=== PATIENT | female | born 1955 | race Caucasian/White ===

== ENCOUNTER → 2019-03-12 09:04 | Outpatient (BNVA) | payer MEDICARE, SELFPAY | PROVIDERS: Family Provider Family Medicine; PCP Family Medicine; Referring Provider Family Medicine; Visit Provider Internal Medicine Rheumatology | DX: L40.50 Arthropathic psoriasis, unspecified (principal); Z79.899 Other long term (current) drug therapy; Z11.59 Encounter for screening for other viral diseases; L40.0 Psoriasis vulgaris; J44.9 Chronic obstructive pulmonary disease, unspecified; F17.210 Nicotine dependence, cigarettes, uncomplicated; L40.9 Psoriasis, unspecified | CPT/HCPCS: 36415; 80076; 82565; 85025; 85651; 86140; 86704; 99214 ==

== ENCOUNTER → 2019-03-12 10:49 | Outpatient (BNVA) | payer MEDICARE, SELFPAY | PROVIDERS: Family Provider Family Medicine; PCP Family Medicine; Referring Provider Family Medicine; Visit Provider Internal Medicine Rheumatology | DX: J44.9 Chronic obstructive pulmonary disease, unspecified (principal); Z79.899 Other long term (current) drug therapy; L40.50 Arthropathic psoriasis, unspecified; L40.9 Psoriasis, unspecified | CPT/HCPCS: 85025 ==

== ENCOUNTER 2019-06-27 10:45 | Outpatient (CLI) | payer MEDICARE, SELFPAY ==
--- NOTE | 2019-06-27 10:51 | XR_ITS ---
WS: [id number] XR chest 2V* [id number] REASON FOR EXAM: COPD FINDINGS: Lung alfonso are hyper aerated with decreased vascularity consistent with early chronic obst ructive pulmonary disease. There is arteriosclerotic changes seen in the arch the aorta. There is no pneumonia, pleural effusion, pulmonary edema, or mass effect. There is no osseous abnormalities. The hilum and apices are normal. Arteriosclerotic changes in the arch of the aorta are seen. XR/XR chest 2V* [id number] IMPRESSION: Mild chronic obstructive pulmonary disease Arteriosclerotic changes.
== END 2019-06-27 10:46 | disposition home or self-care (01) ==
LOC: RAD 10:50
PROVIDERS: Family Provider Family Medicine; PCP Family Medicine; Visit Provider Internal Medicine Critical Care Medicine
DX: J44.9 Chronic obstructive pulmonary disease, unspecified (principal)
CPT/HCPCS: 71046

== ENCOUNTER → 2019-07-04 08:54 | Outpatient (BNVA) | payer MEDICARE, SELFPAY | PROVIDERS: Family Provider Family Medicine; PCP Family Medicine; Visit Provider Internal Medicine Rheumatology | DX: Z79.899 Other long term (current) drug therapy (principal) | CPT/HCPCS: 36415; 80076; 82565; 85025; 85651; 86140 ==

== ENCOUNTER 2019-07-11 08:39 | Outpatient (CLI) | payer MEDICARE, SELFPAY ==
--- NOTE | 2019-07-11 09:00 | CT_ITS ---
WS: [id number] CT CHEST WITHOUT INTRAVENOUS CONTRAST HISTORY: Worsening shortness of breath TECHNIQUE: Contiguous 5 mm axial imaging performed on the thorax. Coronal and sagittal reformats are submitted. All CT scans at [facility] use at least one of these dose optimization techniq ues: automated exposure control; mA and/or kV adjustment per patient size (includes targeted exams wh ere dose is matched to clinical indication); or iterative reconstruction. CONTRAST: None DLP: 679.97 mGycm COMPARISON: 04/11/2013 Lungs and central airway: Lobulated 6 mm nodule at the LEFT apex. Margins are smooth. There are no additional new nodules. Ther e are very small subcentimeter nodules at the lung bases which have been stable for multiple years. Pleura: Normal. No pleural effusion. Heart and pericardium: Normal size heart with a few scattered coronary artery calcifications. Mediastinum and karrie: No mediastinum or hilar adenopathy. Vessels: Moderate calcification in the thoracic aorta. No aneurysm dilatation. Pulmonary artery size is normal. Chest wall and lower neck: No soft tissue masses. Upper abdomen: 1.5 cm area of decreased attenuation in the mid LEFT kidney. Incompletely imaged but a cyst has been described in this location on a study from 06/12/2014. No adrenal mass. Visualized uppe r abdominal structures are negative. Osseous structures: Mild thoracic spondylosis. Chronic anterior wedging of T3. CT/CT chest wo con [id number] IMPRESSION: 1. New 6 mm noncalcified nodule at the LEFT apex. Recommend follow-up chest CT in 12 months. 2. No additional suspicious or concerning nodules. 3. Mild atherosclerosis aorta and coronary arteries.
== END 2019-07-11 08:40 | disposition home or self-care (01) ==
LOC: RADWPI 08:43
PROVIDERS: Family Provider Family Medicine; PCP Family Medicine; Visit Provider Internal Medicine Critical Care Medicine
DX: L40.50 Arthropathic psoriasis, unspecified (principal); Z79.899 Other long term (current) drug therapy; L40.8 Other psoriasis; J44.9 Chronic obstructive pulmonary disease, unspecified; M54.9 Dorsalgia, unspecified; M81.0 Age-related osteoporosis without current pathological fracture; Z87.891 Personal history of nicotine dependence
CPT/HCPCS: 71250; 99214

== ENCOUNTER 2019-07-25 12:22 | Outpatient (CLI) | payer MEDICARE, SELFPAY ==
--- NOTE | 2019-07-25 12:56 | XR_ITS ---
WS: [id number] XR foot RT min 3V* [id number] REASON FOR EXAM: psoriatic arthritis FINDINGS: Osteopenia changes throughout the foot are seen. The phalanges, metatarsals, tarsals show no destructive changes or fractures. Lisfranc joint shows mi ld osteoarthritic changes. The talar region shows talar beaking. But no definite bony coalition is seen. The calcaneus was normal. XR/XR foot RT min 3V* [id number] IMPRESSION: Osteopenic changes throughout the foot Beaking off the anterior talus. Degenerate changes of Lisfranc Franc joint.
--- NOTE | 2019-07-25 12:56 | XR_ITS ---
WS: [id number] XR foot LT min 3V* [id number] REASON FOR EXAM: psoriatic arthritis FINDINGS: Small calcaneal spur is noted. There is no destructive changes to suggest psoriasis involving the foot. The phalanges, metatarsals, and tarsals are all normal. XR/XR foot LT min 3V* 53760 IMPRESSION: Small calcaneal spur No evidence suspicious of psoriatic arthritis.
--- NOTE | 2019-07-25 12:56 | XR_ITS ---
WS: [id number] XR thoracic spine 2V 05103 REASON FOR EXAM: back pain FINDINGS: Degenerates spurring is seen off the upper 8 thoracic vertebra as. The disc spaces essentially normal. There is no definite fractures seen. The lamina, pedicle, spinous processes are all straight. XR/XR thoracic spine 2V 60514 IMPRESSION: Mild osteoarthritic changes of the thoracic spine.
--- NOTE | 2019-07-25 12:56 | XR_ITS ---
WS: [id number] XR lumbar spine 2-3V* [id number] REASON FOR EXAM: back pain FINDINGS: Mild thoracolumbar rotoscoliosis convex to the left. Facet arthropathy L5-S1. Mild retrolisthesis L5 on S1. There is thinning of the disc spaces L3-L4. Increased lumbosacral angle suggesting lordosis. XR/XR lumbar spine 2-3V* 79461 IMPRESSION: Increased lordosis Degenerated disc changes L3-L4 Facet arthropathy L5-S1 Mild retrolisthesis L5-S1 Mild thoracolumbar rotoscoliosis convex to the left Heavy arteriosclerotic changes of the aorta and iliac arteries.
--- NOTE | 2019-07-25 13:15 | XR_ITS ---
WS: [id number] DEXA (DUAL ENERGY X-RAY ABSORPTIOMETRY) Bone mineral density was performed using a Yoomba machine. HISTORY: osteoporosis COMPARISON: None available. Lumbar spine BMD (L1-L4): 0.915 g/cm2 T score: -2.2 Z score: -0.8 Total hip BMD: Left: 0.579 g/cm2. T score: -3.4 Z score: -2.3 Right: 0.520 g/cm2. T score: -3.9 Z score: -2.8 10 year probability of a major osteoporotic fracture is 38%. XR/XR DEXA axial skeleton* 34753 IMPRESSION: OSTEOPOROSIS based upon the WHO classification for females.
== END 2019-07-25 12:23 | disposition home or self-care (01) ==
LOC: RADWPI 12:26
PROVIDERS: Family Provider Family Medicine; PCP Family Medicine; Visit Provider Internal Medicine Rheumatology
DX: M81.0 Age-related osteoporosis without current pathological fracture (principal); M54.9 Dorsalgia, unspecified; L40.50 Arthropathic psoriasis, unspecified; M47.814 Spondylosis without myelopathy or radiculopathy, thoracic region; M40.46 Postural lordosis, lumbar region; M47.817 Spondylosis without myelopathy or radiculopathy, lumbosacral region; M77.32 Calcaneal spur, left foot
CPT/HCPCS: 72070; 72100; 73630; 77080

== ENCOUNTER → 2019-11-12 09:35 | Outpatient (BNVA) | payer MEDICARE, SELFPAY | PROVIDERS: Family Provider Family Medicine; PCP Family Medicine; Visit Provider Internal Medicine Rheumatology | DX: L40.50 Arthropathic psoriasis, unspecified (principal); Z79.899 Other long term (current) drug therapy; R91.1 Solitary pulmonary nodule; J44.9 Chronic obstructive pulmonary disease, unspecified; M81.0 Age-related osteoporosis without current pathological fracture; L40.8 Other psoriasis; Z87.891 Personal history of nicotine dependence | CPT/HCPCS: 36415; 80076; 82310; 82565; 83735; 83970; 84100; 84439; 84443; 85025; 85651; 86140; 99214 ==

== ENCOUNTER → 2020-03-05 09:49 | Outpatient (BNVA) | payer MEDICARE, SELFPAY | PROVIDERS: Family Provider Family Medicine; PCP Family Medicine; Visit Provider Internal Medicine Rheumatology | DX: L40.50 Arthropathic psoriasis, unspecified (principal); L40.0 Psoriasis vulgaris; Z79.899 Other long term (current) drug therapy; M81.0 Age-related osteoporosis without current pathological fracture; M47.816 Spondylosis without myelopathy or radiculopathy, lumbar region; R91.1 Solitary pulmonary nodule; J44.9 Chronic obstructive pulmonary disease, unspecified; Z87.891 Personal history of nicotine dependence | CPT/HCPCS: 36415; 80076; 82565; 85025; 85651; 86140; 99214 ==

== ENCOUNTER 2020-03-20 10:00 | Outpatient (CLI) | payer MEDICARE, SELFPAY ==
--- NOTE | 2020-03-20 10:13 | NMCV_ITS ---
NM noe perf SPECT r/s* [id number] Lashanda Joy Age: 65 Gender: F : 1955 Exam Date: 03/20/2020 11:41 Ordering Phys: Caren Willams MD Technologist: ARIES Amaya Exam Location: [facility] Indications: CHEST PAIN STRESS TEST Please see separate stress test report in [facility] for full findings IMAGE PROTOCOL Rest/Stress 1 Exercise Day Radiopharmaceutical Dose (mCi) Administration Site Administered by Rest: Tc-99m 10.8 IV ARIES Solorzano Sestamibi Stress:Tc-99m 32.7 IV ARIES Amaya Sestamimirta Rest: 20-Mar-2020 60 Discovery 630 Stress: 20-Mar-2020 15 Discovery 630 Radiopharmaceutical was injected at 85 % maximum heart rate. Supine position only as patient was unable to lay prone. SPECT RESULTS Technical Quality: Good Raw Data Analysis: Normal Image Corrections: No attenuation or motion correction applied Summed Stress Score: 0 Summed Rest Score: 2 Summed Difference Score: 0 PERFUSION FINDINGS Small size perfusion abnormality of mild severity of apical inferior, apical septal and apical escalona on rest images with improved tracer uptake on stress images. This is likely suggestive of attenuation artifact. FUNCTIONAL RESULTS (calculated via Gated SPECT) Stress Image LV EF (%): 84 Stress EDV (mL):73 TID: 0.93 Stress ESV (mL):12 FUNCTIONAL FINDINGS: The left ventricle is normal in size. Transient Ischemia Dilatation of 0.93. There is normal left ventricular systolic function. The left ventricular ejection fraction is normal with a value of 84%. There is hyperdynamic left ventricular wall thickening. No regional wall motion abnormality. IMPRESSIONS 1. Myocardial perfusion imaging is normal. Attenuation artifact and apical septal and apical inferior escalona. 2. Overall left ventricular systolic function is normal without regional wall motion abnormalities. 3. The left ventricular ejection fraction is normal with a value of 84%. 4. Scan indicates low risk for cardiac events. Mariela Berry MD (Electronically Signed) Final Date: 20 March 2020 16:30 S
--- NOTE | 2020-03-20 10:13 | ECG_ITS ---
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 Interpretive Statements NAME OF STUDY: EXERCISE SESTAMIBI STRESS TEST INDICATION: Chest Pain Baseline blood pressure of 171/89 mm Hg, oxygen saturation 98% and heart rate 75 beats per minutes. EKG showed normal sinus rhythm, normal axis with normal ST-Ts. The patient exercised for 7 minutes 39 seconds on a standard Unruly protocol. Patient attained a maximum heart rate of 139 beats per minute(88% of the maximum predicted heart rate) with a blood pressure at the peak exercise of 190/79 mm Hg and oxygen saturation 96%. The EKG at the peak exercise revealed sinus tachycardia with no significant ST-T wave changes. Patient did not have any chest pain or any significant arrhythmis with the exercise. The study was terminated due to shortness of breath and exertional fatigue. During the recovery phase, there were no new changes. Blood pressure at the end of the recovery phase was 149/86 mm Hg with a heart rate of 85 beats per minute and oxygen saturation 99%. CONCLUSION: 1. Normal EKG response to treadmill exercise. 2. No exercise-induced chest pain or cardiac arrhythmia. 3. Excellent exercise tolerance, attained a maximum of 10.2 METs. Maximum VO2 of 35.7 mL/kg/min. 4. Baseline hypertension with normal response to exercise. 5. Perfusion scan will be documented separately. Electronically Signed On 03-20-2020 16:34:35 [employer] by Mariela Berry M.D. [id number]
[2020-03-20 10:36] VITALS: BMI 25.0
--- NOTE | 2020-03-20 11:08 | PC.NURSE ---
after discussing with patient, she understands that she may not able to complete treadmill test due to here right ankle. the option to complete this test would be to do a chemical stress test. she agreed to do that if needed. nurse called dr renate salazar to verify order change if needed. verbal order to change to alia scan if needed.
[2020-03-20 12:38] VITALS: BP 149/86; PULSE 84
== END 2020-03-20 10:01 | disposition home or self-care (01) ==
LOC: RAD 10:09 → CDL 10:13
PROVIDERS: PCP Family Medicine; Visit Provider Family Medicine
DX: R07.9 Chest pain, unspecified (principal)
CPT/HCPCS: 78452; 93017; A9500

== ENCOUNTER → 2020-07-09 08:26 | Outpatient (BNVA) | payer MEDICARE, SELFPAY | PROVIDERS: PCP Family Medicine; Visit Provider Internal Medicine Rheumatology | DX: M81.0 Age-related osteoporosis without current pathological fracture (principal); Z79.899 Other long term (current) drug therapy; L40.50 Arthropathic psoriasis, unspecified | CPT/HCPCS: 36415; 80076; 82565; 85025; 86140 ==

== ENCOUNTER → 2020-07-16 08:33 | Outpatient (BNVA) | payer MEDICARE, SELFPAY | PROVIDERS: PCP Family Medicine; Visit Provider Internal Medicine Rheumatology | DX: L40.50 Arthropathic psoriasis, unspecified (principal); L40.9 Psoriasis, unspecified; Z79.899 Other long term (current) drug therapy; M81.0 Age-related osteoporosis without current pathological fracture; M47.896 Other spondylosis, lumbar region; J44.9 Chronic obstructive pulmonary disease, unspecified; F17.210 Nicotine dependence, cigarettes, uncomplicated | CPT/HCPCS: 99214 ==

== ENCOUNTER → 2020-10-15 09:58 | Outpatient (BNVA) | payer MEDICARE, SELFPAY | PROVIDERS: PCP Family Medicine; Visit Provider Internal Medicine Rheumatology | DX: M81.0 Age-related osteoporosis without current pathological fracture (principal); Z79.899 Other long term (current) drug therapy; L40.50 Arthropathic psoriasis, unspecified | CPT/HCPCS: 36415; 80076; 82306; 82310; 82565; 85025; 86140 ==

== ENCOUNTER → 2020-10-30 12:42 | Outpatient (BNVA) | payer MEDICARE, SELFPAY | PROVIDERS: PCP Family Medicine; Visit Provider Internal Medicine Rheumatology | DX: L40.50 Arthropathic psoriasis, unspecified (principal); L40.0 Psoriasis vulgaris; Z79.899 Other long term (current) drug therapy; M81.0 Age-related osteoporosis without current pathological fracture; M47.896 Other spondylosis, lumbar region; J44.9 Chronic obstructive pulmonary disease, unspecified; R91.1 Solitary pulmonary nodule; Z71.89 Other specified counseling; F17.200 Nicotine dependence, unspecified, uncomplicated | CPT/HCPCS: 99214 ==

== ENCOUNTER 2020-10-31 13:02 | Outpatient (CLI) | payer MEDICARE, SELFPAY ==
--- NOTE | 2020-10-31 08:45 | XR_ITS ---
WS: [id number] RIGHT RIBS, MULTIPLE VIEWS HISTORY: R07.81 - Pleurodynia COMPARISON: None available. Ribs: No rib fractures or bone destruction identified. Lungs and mediastinum: Visualized lung is clear. No pneumothorax or pulmonary contusion. Mild atherosclerosis aorta. XR/XR ribs RT 2V* [id number] IMPRESSION: No RIGHT rib fractures identified.
== END 2020-10-31 13:03 | disposition home or self-care (01) ==
LOC: RADWPI 13:11
PROVIDERS: PCP Family Medicine; Visit Provider Internal Medicine Rheumatology
DX: R07.81 Pleurodynia (principal)
CPT/HCPCS: 71100

== ENCOUNTER 2021-04-06 07:47 | Outpatient (CLI) | payer MEDICARE, SELFPAY ==
--- NOTE | 2021-04-06 08:00 | XRR_ITS ---
PROCEDURE INFORMATION: Exam: XR Cervical Spine Exam date and time: 04/06/2021 8:00 AM Age: 66 years old Clinical indication: Neck pain; Prior surgery; Surgery type: Osteomylitis, c-spine, lower back, RT hip; Patient HX: RT hip pain, neck, and lower back pain. PT states that to the RT of her spine she feels as if she has an electrical shock , nausea, lightheadedness when bending; Additional info: Psoriasis/rheumatoid arthritis/acute neck pain TECHNIQUE: Imaging protocol: XR of the cervical spine. Views: 2 or 3 views. COMPARISON: CT Cervical Spine wo* [id number] 02/28/2017 8:00 AM FINDINGS: Bones/joints: Anterior fixation in bony fusion at C5/6. 1 mm listhesis C6 anterior to C7. Mild to moderate facet joint hypertrophic changes. No fracture. Soft tissues: Unremarkable. XR/XR cervical spine 3V* [id number] IMPRESSION: Postoperative changes with arthritis and minimal listhesis.
--- NOTE | 2021-04-06 08:00 | XRR_ITS ---
PROCEDURE INFORMATION: Exam: XR Lumbosacral Spine Exam date and time: 04/06/2021 8:00 AM Age: 66 years old Clinical indication: Sciatica; Prior surgery; Surgery type: Osteomylitis, c-spine, lower back, RT hip; Patient HX: RT hip pain, neck, and lower back pain. PT states that to the RT of her spine she feels as if she has an electrical shock , nausea, lightheadedness when bending; Additional info: Ra/sciatica TECHNIQUE: Imaging protocol: XR of the lumbosacral spine. Views: 2 or 3 views. COMPARISON: CR XR lumbar spine 2-3V* [id number] 07/25/2019 1:00 PM FINDINGS: Bones/joints: Osteopenia. Minimal disc height loss at L3/4. Moderate to severe facet joint hypertrophic changes at L4/5 and L5/S1. Soft tissues: Unremarkable. Vasculature: Aortic calcifications. XR/XR lumbar spine 2-3V* [id number] IMPRESSION: Arthritis and osteopenia without fracture.
--- NOTE | 2021-04-06 08:00 | XRR_ITS ---
PROCEDURE INFORMATION: Exam: XR Right Hip Exam date and time: 04/06/2021 8:00 AM Age: 66 years old Clinical indication: Right hip; Prior surgery; Surgery type: Osteomylitis, c-spine, lower back, RT hip; Patient HX: RT hip pain, neck, and lower back pain. PT states that to the RT of her spine she feels as if she has an electrical shock , nausea, lightheadedness when bending; Additional info: R hip pain/psoriasis/ra TECHNIQUE: Imaging protocol: XR Right hip. Views: 1 view hip with pelvis when performed. COMPARISON: CT Abdomen/Pelvis [facility] [id number] 06/12/2014 1:21 PM FINDINGS: Bones/joints: Mild osteopenia. No fracture. Intact joint space. Soft tissues: Unremarkable. XR/XR hip RT 2-3V wo/w pel* [id number] IMPRESSION: No acute findings.
== END 2021-04-06 07:48 | disposition home or self-care (01) ==
LOC: RAD 07:57
PROVIDERS: PCP Family Medicine; Visit Provider Family Medicine
DX: L40.9 Psoriasis, unspecified (principal); M06.9 Rheumatoid arthritis, unspecified; M54.30 Sciatica, unspecified side; M25.551 Pain in right hip; M47.816 Spondylosis without myelopathy or radiculopathy, lumbar region; M85.80 Other specified disorders of bone density and structure, unspecified site; M47.812 Spondylosis without myelopathy or radiculopathy, cervical region
CPT/HCPCS: 72040; 72100; 73502

== ENCOUNTER 2021-04-23 09:57 | Outpatient (CLI) | payer MEDICARE, SELFPAY ==
--- NOTE | 2021-04-23 12:00 | CT_ITS ---
WS: [id number] CT ABDOMEN PELVIS TECHNIQUE: Contrast-enhanced CT of the abdomen and pelvis with coronal and sagittal reformatted image s. CLINICAL INFORMATION: RLQ ABD PAIN COMPARISON: CT June 12 2014 DLP: 887.[address] scans at [facility] use at least one of these dose optimization techniques: automated e xposure control; mA and/or kV adjustment per patient size (includes targeted exams where dose is matc hed to clinical indication); or iterative reconstruction. FINDINGS: Diffuse fatty infiltration of the liver. Normal portal vein and splenic vein. Normal spleen. Normal G E junction. Fatty atrophy of the pancreas. Normal caliber abdominal aorta. Aortic calcification. Citlalli ac and SMA are patent. Adrenal glands are normal. Normal renal parenchymal enhancement. No hydronephrosis. Simple LEFT renal cyst measuring 1.9 CM. Urine distended bladder. Sigmoid diverticulosis. No evidence of acute diverticulitis. No evidence of high-grade small or large bowel obstruction. Normal caliber appendix in the RIGHT lower quadrant. No evidence of acute appendicitis. No periaortic or pelvic lymphadenopathy. No inguinal lymphadenopathy. Normal lumbar spine. Tiny fat-containing umbilical hernia. Prior hysterectomy CT/CT abdomen pelvis w con* [id number] IMPRESSION: 1. Normal appendix in the RIGHT lower quadrant. No evidence of acute appendici tis. 2. Normal renal parenchymal enhancement. No hydronephrosis. 3. Simple LEFT renal cyst measuring 1.9 cm. 4. Normal caliber abdominal aorta. Mild Aortic calcification. 5. Sigmoid diverticulosis. No acute diverticulitis. 6. No acute findings in the abdomen or pelvis.
[2021-04-23] MEDS: iohexol 300 mg/mL 100 mL Btl IV (12:38)
[2021-04-23] MEDS: iohexol 300 mg/mL 50 mL Btl PO (12:41)
== END 2021-04-23 09:58 | disposition home or self-care (01) ==
LOC: RAD 10:06
PROVIDERS: PCP Family Medicine; Visit Provider Family Medicine
DX: R10.31 Right lower quadrant pain (principal); N28.1 Cyst of kidney, acquired; K57.30 Diverticulosis of large intestine without perforation or abscess without bleeding
CPT/HCPCS: 74177

== ENCOUNTER → 2021-04-27 10:01 | Outpatient (BNVA) | payer MEDICARE, SELFPAY | PROVIDERS: PCP Family Medicine; Visit Provider Surgery | DX: Z11.52 Encounter for screening for COVID-19 (principal) | CPT/HCPCS: 87635 ==

== ENCOUNTER 2021-04-30 07:19 | Day surgery (SDC) | payer MEDICARE, SELFPAY ==
[2021-04-27 15:16] VITALS: BMI 25.7
[2021-04-30 07:49] VITALS: BP 122/76; PULSE 98; RESP 18; TEMP 36.5; O2SAT 100
--- NOTE | 2021-04-30 08:12 | ANES.PREANE2 ---
Pre-Anesthetic Assessment Height/Weight: Height 1.63 m Weight 68.039 kg Temp Pulse Resp BP Pulse Ox 97.7 F 98 18 122/76 100 04/30/21 07:49 04/30/21 07:49 04/30/21 07:49 04/30/21 07:49 04/30/21 07:49 Preop Diagnosis: Abdominal pain/bleeding per rectum Operation Date: 04/30/21 09:00 Proposed Procedures p EGD 01345/40514/r10.9(Not Applicable) - Myke Grigsby MD s Colonoscopy(Not Applicable) - Myke Grigsby MD Familial anesthetic complications: None Was Beta Andrae taken within 24 hours: N/A Was Clonidine taken within 24 hours: N/A Last intake: Intake Last Liquid Date 04/29/21 Last Liquid Time 20:30 Last Solid Date 04/28/21 Last Solid Time 15:00 Social Tobacco and No alcohol Exam alert, oriented x 3, clear to auscultation bilaterally and regular rate & rhythm Airway Submandibular: within normal limits Cervical ROM: within normal limits Mallampati: Class II Pulmonary Chronic Obstructive Pulmonary Disease GI Gastroesophageal Reflux Disease Anesthetic Plan ASA status: 3 Anesthesia: MAC Risk of > 500 ml blood loss (7ml/kg in children): No Medications/Allergies Home Medications Medication Instructions Recorded Confirmed Last Taken Type acyclovir 5 % topical ointment 1 applic TOPICAL 6XD 03/10/19 04/27/21 Unknown History levalbuterol tartrate 45 2 inh INHALATION Q4H PRN gm 03/10/19 04/27/21 Unknown History mcg/actuation aerosol inhaler (Xopenex HFA) loratadine 10 mg capsule 10 mg PO QDAY 03/10/19 04/27/21 Unknown History methocarbamol 750 mg tablet 750 mg PO TID PRN 03/10/19 04/27/21 Unknown History valacyclovir 1 gram tablet 2,000 mg PO QDAY PRN tab 03/10/19 04/27/21 Unknown History (Valtrex) omeprazole 20 mg capsule,delayed 20 mg PO QDAY PRN 03/12/19 04/27/21 Unknown History release ondansetron HCl 4 mg tablet 4 mg PO Q8H PRN 03/12/19 04/27/21 Unknown History (Zofran) fluticasone propionate 50 1 spray INTRANASAL Q12H 90 Days 05/06/20 03/07/22 Unknown Rx mcg/actuation nasal #19.8 ml spray,suspension (Flonase Allergy Relief) ipratropium bromide 0.02 % 2.5 ml INHALATION QID PRN 06/27/19 04/27/21 Unknown History solution for inhalation levalbuterol HCl 0.63 mg/3 mL 0.63 mg INHALATION TID PRN 06/27/19 04/27/21 Unknown History solution for nebulization halobetasol propionate 0.05 % 1 applic TOPICAL BID #50 g 07/24/20 04/27/21 Unknown Rx topical cream diclofenac sodium 75 mg 75 mg PO BID PRN #30 tab 10/30/20 04/27/21 Unknown Rx tablet,delayed release ondansetron 4 mg disintegrating 4 mg PO Q8H PRN #30 tab 10/30/20 04/27/21 Unknown Rx tablet secukinumab 150 mg/mL subcutaneous 300 mg (2 mL) SUBCUT .Y1ijsui #2 ml 10/30/20 04/27/21 Unknown Rx pen injector (Cosentyx Pen) oxycodone-acetaminophen 5 mg-325 1 tab PO Q8H PRN 04/22/21 04/27/21 Unknown History mg tablet calcium carbonate 600 mg (1,500 1 tab PO BID 04/27/21 04/27/21 Unknown History mg)-vitamin D3 200 unit tablet leflunomide 10 mg tablet (Arava) 10 mg PO DAILY PRN 04/30/21 04/30/21 Unknown History Allergies Allergy/AdvReac Type Severity Reaction Status Date / Time No Known Allergies Allergy Verified 04/27/21 15:02 [facility] Anesthesia Medical History Anti-cyclic citrullinated peptide antibody positive COPD (chronic obstructive pulmonary disease) Gastroesophageal reflux disease High risk medication use Immunization counseling Lung nodule 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[place] (psoriatic arthritis) Post-menopausal osteoporosis Post-menopausal osteoporosis Psoriasis Pulmonary nodule, left Surgical History History of hysterectomy History of lumbar surgery Social History Smoking and tobacco status: current every day smoker Quit status (tobacco): has quit using tobacco Year quit tobacco: 2020 0.5 PPD x 45 Years Alcohol intake: never Lives independently: Yes Household members: spouse Marital status: Current occupational status: disabled History of recent travel: No Current gender identity: Female Data Anesthesia Cardiac Studies: Sestamibi Stress Test (Cardiology) 03/20/20
[2021-04-30] MEDS: sodium chloride 0.9% 1,000 ML 30 ML IV (08:13)
--- NOTE | 2021-04-30 08:13 | W.PM.OPSUD ---
Surgery/Procedure H&P Update DATE OF PROCEDURE: April 30, 2021 DATE H&P PERFORMED: 04/22/21 CHANGES TO PREVIOUS DOCUMENTATION: None PREOP DIAGNOSIS: Abdominal pain/bleeding per rectum PRIMARY INDICATION FOR PROCEDURE: The same PLANNED PROCEDURE: Operation Date: 04/30/21 09:00 Proposed Procedures p EGD 86806/44328/r10.9(Not Applicable) - Myke Grigsby MD s Colonoscopy(Not Applicable) - Myke Grigsby MD
[2021-04-30 09:19] VITALS: BP 115/66; PULSE 74; RESP 16; TEMP 36.3; O2SAT 93
[2021-04-30 09:29] VITALS: BP 131/72; PULSE 65; RESP 18; TEMP 36.2; O2SAT 96
--- NOTE | 2021-04-30 09:46 | PC.NURSE ---
up to bathroom with assistance. passed a lot of gas. assisted back to bed. notified radiology of need for barium enema.
--- NOTE | 2021-04-30 09:56 | PC.NURSE ---
glasses with patient.
--- NOTE | 2021-04-30 12:46 | ANE.PACU2 ---
Inpatient post-anesthesia follow up: Airway intact: Yes Vital signs: Temperature 97.2 F Pulse Rate 65 Respiratory Rate 18 Blood Pressure 131/72 Pulse Oximetry 96 Oxygen Delivery Me thod Room Air Oxygen Flow Rate Fraction of Inspir ed Oxygen Hydration adequate: Yes Nausea and vomiting: No Pain level: 1 Mental status: Baseline
== END 2021-04-30 10:12 | disposition home or self-care (01) ==
PROVIDERS: PCP Family Medicine; Visit Provider Surgery
PROC: 0DJ08ZZ Inspection of Upper Intestinal Tract, Via Natural or Artificial Opening Endoscopic (ICD-10-PCS; CPT 43235; principal; 2021-04-30 09:00)
PROC: 0DJD8ZZ Inspection of Lower Intestinal Tract, Via Natural or Artificial Opening Endoscopic (ICD-10-PCS; CPT 45330; 2021-04-30 09:00)
DX: R10.9 Unspecified abdominal pain (principal); K62.5 Hemorrhage of anus and rectum; K57.30 Diverticulosis of large intestine without perforation or abscess without bleeding; K29.70 Gastritis, unspecified, without bleeding; K29.80 Duodenitis without bleeding; J44.9 Chronic obstructive pulmonary disease, unspecified; K21.9 Gastro-esophageal reflux disease without esophagitis; Z79.899 Other long term (current) drug therapy; F17.210 Nicotine dependence, cigarettes, uncomplicated
CPT/HCPCS: 43239; 45330; 88305; 88342; J2704; J7030

== ENCOUNTER 2021-05-01 07:52 | Outpatient (CLI) | payer MEDICARE, SELFPAY ==
--- NOTE | 2021-05-01 08:05 | FL_ITS ---
WS: [id number] Barium enema, 05/01/2021 Clinical Data: SIGMOID COLON STRICTURE Comparison: None. Fluoroscopy time: 1.4 minutes Findings: The preliminary film showed no significant abnormalities. There is calcification in the wall of the a bdominal aorta and the common iliac arteries. The barium was introduced in a retrograde fashion to fill entire colon. There is reflux into the term inal ileum and the appendix. There are numerous diverticula in the sigmoid colon. The haustral patter n was normal. No polyps or masses are seen. The mucosal surface showed no abnormalities. No stricture s or obstruction was present. The postevacuation film was not remarkable. FL/FL barium enema [id number] Impression: 1. Scattered sigmoid diverticula. 2. Negative for stricture or obstruction.
== END 2021-05-01 07:53 | disposition home or self-care (01) ==
PROVIDERS: PCP Family Medicine; Visit Provider Surgery
DX: K56.699 Other intestinal obstruction unspecified as to partial versus complete obstruction (principal); K57.30 Diverticulosis of large intestine without perforation or abscess without bleeding
CPT/HCPCS: 74270

== ENCOUNTER → 2021-05-05 09:34 | Outpatient (BNVA) | payer MEDICARE, SELFPAY | PROVIDERS: PCP Family Medicine; Visit Provider Internal Medicine Rheumatology | DX: L40.50 Arthropathic psoriasis, unspecified (principal); L40.9 Psoriasis, unspecified; R10.31 Right lower quadrant pain; Z79.899 Other long term (current) drug therapy; M81.0 Age-related osteoporosis without current pathological fracture; J44.9 Chronic obstructive pulmonary disease, unspecified; R91.1 Solitary pulmonary nodule; M47.896 Other spondylosis, lumbar region; R63.4 Abnormal weight loss; Z68.26 Body mass index [BMI] 26.0-26.9, adult; Z71.89 Other specified counseling | CPT/HCPCS: 99214 ==

== ENCOUNTER 2021-05-07 06:05 | Outpatient (CLI) | payer MEDICARE, SELFPAY ==
--- NOTE | 2021-05-07 | USR_ITS ---
PROCEDURE INFORMATION: Exam: US Nonobstetric Pelvis; Complete Exam date and time: 05/07/2021 6:22 AM Age: 66 years old Clinical indication: Pelvic pain; Additional info: Right lower pelvic pain TECHNIQUE: Imaging protocol: Transabdominal pelvic nonobstetric ultrasound. Complete exam. Real time ultrasound with image documentation. COMPARISON: CT abdomen pelvis w con* [id number] 04/23/2021 12:34 PM FINDINGS: Uterus: Status post hysterectomy. Right ovary/adnexa: Nonvisualization of the right ovary. Left ovary/adnexa: Nonvisualization of the left ovary. Intraperitoneal space: No significant free fluid. Urinary bladder: Normal bladder morphology. US/US pelvic complete* [id number] IMPRESSION: No acute sonographic abnormality in the visualized pelvis.
== END 2021-05-07 06:06 | disposition home or self-care (01) ==
PROVIDERS: PCP Family Medicine; Visit Provider Family Medicine
DX: R10.31 Right lower quadrant pain (principal); R10.2 Pelvic and perineal pain
CPT/HCPCS: 76856

== ENCOUNTER → 2021-07-01 14:26 | Outpatient (BNVA) | payer MEDICARE, SELFPAY | PROVIDERS: PCP Family Medicine; Referring Provider Family Medicine; Visit Provider Surgery | DX: K46.9 Unspecified abdominal hernia without obstruction or gangrene (principal); R10.31 Right lower quadrant pain | CPT/HCPCS: 99213 ==

== ENCOUNTER 2021-07-06 15:52 | Day surgery (SDC) | payer MEDICARE, SELFPAY ==
[2021-07-06 12:17] VITALS: BMI 25.7
[2021-07-06 12:32] VITALS: BP 155/71; PULSE 72; RESP 17; TEMP 36.5; O2SAT 97
[2021-07-06] MEDS: scopolamine 1.5 Patch 1 PATCH TRANSDERMA (12:40)
[2021-07-06] MEDS: sodium chloride 0.9% 1,000 ML 30 ML IV (12:40)
[2021-07-06] MEDS: acetaminophen 1,000 MG/100 ML PIGGYBACK 400 MG IV (12:41)
--- NOTE | 2021-07-06 12:48 | ANES.PREANE2 ---
Pre-Anesthetic Assessment Height/Weight: Height 1.63 m Weight 68.039 kg Temp Pulse Resp BP Pulse Ox 97.7 F 72 17 155/71 97 07/06/21 12:32 07/06/21 12:32 07/06/21 12:32 07/06/21 12:32 07/06/21 12:32 Preop Diagnosis: Right groin hernia Operation Date: 07/06/21 13:50 Proposed Procedures p Laparoscopic Inguinal Hernia Repair 07408/ K40.90(Right) - Myke Grigsby MD Familial anesthetic complications: None Was Beta Andrae taken within 24 hours: N/A Was Clonidine taken within 24 hours: N/A Last intake: Intake Last Liquid Date 07/06/21 Last Liquid Time 08:00 Last Solid Date 07/05/21 Last Solid Time 17:00 Social No alcohol and No tobacco quit smoking Exam alert, oriented x 3, clear to auscultation bilaterally and regular rate & rhythm Airway Mallampati: Class II Pulmonary Chronic Obstructive Pulmonary Disease CV/HEM None reported None reported Hepatic None reported GI None reported Musc/skel psoriatic arthritis Neuropsych None reported Anesthetic Plan ASA status: 2 Anesthesia: General Risk of > 500 ml blood loss (7ml/kg in children): No Medications/Allergies Home Medications Medication Instructions Recorded Confirmed Last Taken Type acyclovir 5 % topical ointment 1 applic TOPICAL 6XD 03/10/19 07/06/21 04/29/21 History levalbuterol tartrate 45 2 inh INHALATION Q4H PRN gm 03/10/19 07/06/21 Unknown History mcg/actuation aerosol inhaler (Xopenex HFA) loratadine 10 mg capsule 10 mg PO QDAY 03/10/19 07/06/21 Unknown History methocarbamol 750 mg tablet 750 mg PO TID PRN 03/10/19 07/06/21 Unknown History valacyclovir 1 gram tablet 2,000 mg PO QDAY PRN tab 03/10/19 07/06/21 Unknown History (Valtrex) fluticasone propionate 50 1 spray INTRANASAL Q12H 90 Days 06/27/19 07/06/21 Unknown Rx mcg/actuation nasal #19.8 ml spray,suspension (Flonase Allergy Relief) ipratropium bromide 0.02 % 2.5 ml INHALATION QID PRN 06/27/19 07/06/21 Unknown History solution for inhalation levalbuterol HCl 0.63 mg/3 mL 0.63 mg INHALATION TID PRN 06/27/19 07/06/21 Unknown History solution for nebulization halobetasol propionate 0.05 % 1 applic TOPICAL BID #50 g 07/24/20 07/06/21 07/01/21 Rx topical cream diclofenac sodium 75 mg 75 mg PO BID PRN #30 tab 10/30/20 07/06/21 Unknown Rx tablet,delayed release ondansetron 4 mg disintegrating 4 mg PO Q8H PRN #30 tab 10/30/20 07/06/21 Unknown Rx tablet oxycodone-acetaminophen 5 mg-325 1 tab PO Q8H PRN 04/22/21 07/06/21 07/05/21 20:00 History mg tablet pantoprazole 40 mg tablet,delayed See Rx Instructions .ROUTE 04/30/21 07/06/21 07/04/21 Rx release .COMPLEX #90 tab etanercept 50 mg/mL (1 mL) 50 mg SUBCUT .Q7days #4 ml 05/05/21 07/06/21 Unknown Rx subcutaneous pen injector (Enbrel SureClick) leflunomide 10 mg tablet (Arava) 10 mg PO DAILY 05/05/21 07/06/21 Unknown History prednisone 5 mg tablet 5 mg PO DAILY #90 tab 06/25/21 07/06/21 07/01/21 Rx Allergies Allergy/AdvReac Type Severity Reaction Status Date / Time No Known Allergies Allergy Verified 07/06/21 12:08 Current Medications Generic Name Dose Route Start Last Admin Trade Name Jeanq PRN Reason Stop Dose Admin Sodium Chloride 1,000 mls @ 30 mls/hr 07/06/21 12:00 07/06/21 12:40 Sodium Chloride 0.9% IV 07/07/21 11:59 30 mls/hr .Q24H JÚNIOR Administration PFSH Anesthesia Medical History Anti-cyclic citrullinated peptide antibody positive COPD (chronic obstructive pulmonary disease) Gastroesophageal reflux disease High risk medication use Immunization counseling Lung nodule Other intermediate (current) drug therapy PA (psoriatic arthritis) Post-menopausal osteoporosis Post-menopausal osteoporosis Psoriasis Pulmonary nodule, left Right lower quadrant abdominal pain Surgical History History of ankle surgery History of cervical spinal surgery History of hysterectomy History of lumbar surgery Social History Smoking and tobacco status: current every day smoker Quit status (tobacco): has quit using tobacco Year quit tobacco: 2019 0.5 PPD x 45 Years Alcohol intake: never Lives independently: Yes Household members: spouse Marital status: Current occupational status: disabled History of recent travel: No Current gender identity: Female Data Anesthesia Cardiac Studies: Sestamibi Stress Test (Cardiology) 03/20/20
--- NOTE | 2021-07-06 13:16 | W.PM.OPSUD ---
Surgery/Procedure H&P Update DATE OF PROCEDURE: July 06, 2021 DATE H&P PERFORMED: 07/01/21 H&P UPDATE INFORMATION: I have reviewed H&P completed within last 30 days, I have examined patient prior to procedure and No changes to prior documentation PREOP DIAGNOSIS: Right groin hernia PRIMARY INDICATION FOR PROCEDURE: The same PLANNED PROCEDURE: Operation Date: 07/06/21 13:50 Proposed Procedures p Laparoscopic Inguinal Hernia Repair 06373/ K40.90(Right) - Myke Grigsby MD
--- NOTE | 2021-07-06 14:35 | SUR.PREOP ---
1435-Patient was rescheduled for Tuesday07/07/21 from today due to mesh was not available for procedure. Nurse gave patient $40 for inconvenience as sitting here all afternoon, her took off work today and will have to again tomorrow.
== END 2021-07-06 15:52 | disposition home or self-care (01) ==
LOC: OR 15:52
PROVIDERS: PCP Family Medicine; Visit Provider Surgery
PROC: (CPT 49650; principal; 2021-07-06 13:20)
DX: K40.90 Unilateral inguinal hernia, without obstruction or gangrene, not specified as recurrent (principal); Z53.8 Procedure and treatment not carried out for other reasons; J44.9 Chronic obstructive pulmonary disease, unspecified; F17.200 Nicotine dependence, unspecified, uncomplicated
CPT/HCPCS: J0330; J1100; J2250; J2405; J2704; J2710; J3010; J3490; J7030

== ENCOUNTER 2021-07-07 11:48 | Day surgery (SDC) | payer MEDICARE, SELFPAY ==
[2021-07-07] VITALS (12 sets, daily range): BP systolic 119–170; BP diastolic 71–90; PULSE 56–77; RESP 14–29; TEMP 36.1–36.8; O2SAT 94–100; BMI 25.7
[2021-07-07] MEDS: acetaminophen 1,000 MG/100 ML PIGGYBACK 400 MG IV (13:18)
--- NOTE | 2021-07-07 13:24 | P.ANESUD_ITS ---
Pre-Anesthetic Update Pre-Anesthetic Assessment: Date of Surgery/Procedure: 07/07/21 Preop Sherrie gnosis: Right Inguinal Hernia Proposed Procedure: Operation Date: 07/07/21 13:20 Proposed Procedures p Laparoscopic Inguinal Hernia Repair 97779/ k40.90(Right) - Myke Grigsby MD Any changes to Pre-Anesthetic Assessment?: No Vitals: Temperature 97.8 F 07/07/21 12:36 Pulse Rate 77 07/07/21 12:36 Pulse Rhythm 07/07/21 12:41 Pulse Strength 3+ Normal 07/07/21 12:41 Respiratory Rate 16 07/07/21 12:36 Blood Pressure 141/73 07/07/21 12:36 Blood Pressure Stella n 95 07/07/21 12:36 Pulse Oximetry 98 07/07/21 12:36 Oxygen Delivery Me thod 07/07/21 12:41 Exam: Pre-Anes Outpt Exam: alert, oriented x 3, clear to auscultation bilaterally and regular rate & rhythm Cardiac Studies: Sestamibi Stress Test (Cardiology) 03/20/20
[2021-07-07] MEDS: sodium chloride 0.9% 1,000 ML 30 ML IV (13:30)
[2021-07-07] MEDS: midazolam 1 mg/mL INJ 2 mL 2 MG IVP (13:40)
--- NOTE | 2021-07-07 13:43 | W.PM.OPSUD ---
Surgery/Procedure H&P Update DATE OF PROCEDURE: July 07, 2021 DATE H&P PERFORMED: 07/01/21 H&P UPDATE INFORMATION: I have reviewed H&P completed within last 30 days, I have examined patient prior to procedure and Changes to prior documentation as noted here (We had to postpone the patient from yesterday to today as there was no available appropriate mesh size.) PREOP DIAGNOSIS: Right Inguinal Hernia PLANNED PROCEDURE: Operation Date: 07/07/21 13:20 Proposed Procedures p Laparoscopic Inguinal Hernia Repair 71593/ k40.90(Right) - Myke Grigsby MD
--- NOTE | 2021-07-07 15:02 | P.OP_ITS ---
Operative Report Date of procedure: July 07, 2021 Pre-op diagnosis: Preop Diagnosis Right Inguinal Hernia Post-op diagnosis: Abdominal wall hernia located at the right side of the suprapubic region with a fascial defect about half an inch of diameter Procedure done: Laparoscopic repair of abdominal wall fascial defect without mesh placement Surgeon: Myke Grigsby MD [employer] Department Supervisor: senior quality technicianfestus Fan Circulating nurse Felicia Anesthesia: General (Amandeep Henao and Dr. Orozco) Estimated blood loss (mL): 5 IV fluids (mL): 700 Urine output (mL): 100 Procedure: Patient was identified in the holding area ,patient was transferred to the operating room where he was placed in supine position, with both arms were tucked, antibiotic was given with induction, endotracheal tube was placed per anesthesia, Soto catheter was inserted by the circulating nurse and revealed clear urine, prep and drape of the abdomen was done under the usual sterile technique as well as the scrotal area. Time-out was done verifying the patient's name/date of /planned procedure destination after the procedure, all were in agreement. SCDs confirmed to be functioning, preoperative antibiotics administered per protocol, and beta alison protocol was confirmed. A vertical skin incision of 1.2 cm was made with 11 blade knife through the supra umbilicus , incision was carried down to the subcutaneous tissue and deepened to identify the anterior fascia, two stay sutures were applied to the fascia, and safe entrance to the abdominal cavity was achieved, a Torres trocar technique safe entry to the abdominal cavity was achieved verified by using 10 mm zero degree laparoscopy, switched to a 30 degrees scope,low flow followed by a higher flow of CO2 gas up to [address] a 5 mm trocar towards the left upper side of the abdomen under direct visualization There was no evidence of injury to intra-abdominal structures from the port entry, there was no evidence of any inguinal canal herniation and no femoral canal herniation there was fascial attenuation towards the right side of the suprapubic area less than half inch in diameter. I did communicate with Dr. Samaniego radiologist as we discussed this case previously for the CT scan images and he agreed on that location. At that point I decided to put a [id number] #1 PDS suture as it was a very small defect to justify placement of a mesh. A total of 30 mL Exparel injected Final look demonstrated good hemostasis.Then the fascia on the supra umbilical fascial defect was closed using #1 PDS sutures under direct visualization using fascial closure device Tolu Lee.All ports were removed,then the abdomen was desufflated. All skin incisions were closed with 3-0 Vicryl followed by 4-0 Monocryl subcuticular suture and Dermabond was applied. The patient tolerated the procedure well, Soto catheter was taken out ,got extubated and was transferred to the recovery area in stable condition. All counts of instruments, needles and sponges were completed I was present for the whole entire procedure
[2021-07-07] MEDS: meperidine 50 mg/mL INJ 12.5 MG IVP ×2 (15:22→15:32)
--- NOTE | 2021-07-07 16:27 | ANE.PACU2 ---
Inpatient post-anesthesia follow up: Airway intact: Yes Vital signs: Temperature 97.7 F Pulse Rate 56 Respiratory Rate 17 Blood Pressure 168/71 Pulse Oximetry 99 Oxygen Delivery Me thod Nasal Cannula Oxygen Flow Rate 2 Fraction of Inspir ed Oxygen Hydration adequate: Yes Nausea and vomiting: No Pain level: 2 Mental status: Baseline
[2021-07-07] MEDS: TRAMadol 50 mg Tablet PO (16:55)
--- NOTE | 2021-07-07 17:04 | SUR.PHASEII ---
no drainage or bleeding noted.
== END 2021-07-07 17:05 | disposition home or self-care (01) ==
PROVIDERS: PCP Family Medicine; Visit Provider Surgery
PROC: (CPT 49650; principal; 2021-07-07 13:10)
DX: K40.90 Unilateral inguinal hernia, without obstruction or gangrene, not specified as recurrent (principal); Z79.52 Long term (current) use of systemic steroids; J44.9 Chronic obstructive pulmonary disease, unspecified; Z79.899 Other long term (current) drug therapy; M81.0 Age-related osteoporosis without current pathological fracture; F17.200 Nicotine dependence, unspecified, uncomplicated
CPT/HCPCS: 49650; 51702; C9290; J0330; J0690; J1100; J1200; J2175; J2250; J2405; J2704; J2710; J3010; J3490; J7030

== ENCOUNTER → 2021-07-22 10:30 | Outpatient (BNVA) | payer MEDICARE, SELFPAY | PROVIDERS: PCP Family Medicine; Visit Provider Surgery | DX: Z09 Encounter for follow-up examination after completed treatment for conditions other than malignant neoplasm (principal) | CPT/HCPCS: 99024 ==

== ENCOUNTER → 2021-10-14 08:51 | Outpatient (BNVA) | payer MEDICARE, SELFPAY | PROVIDERS: PCP Family Medicine; Visit Provider Nurse Practitioner Family | DX: N30.20 Other chronic cystitis without hematuria (principal) | CPT/HCPCS: 51798; 81003; 87086; 99203 ==

== ENCOUNTER → 2021-12-22 10:07 | Outpatient (BNVA) | payer MEDICARE, SELFPAY | PROVIDERS: PCP Family Medicine; Visit Provider Urology | DX: N30.20 Other chronic cystitis without hematuria (principal) | CPT/HCPCS: 81003; 99213 ==

== ENCOUNTER 2022-03-03 08:27 | Outpatient (CLI) | payer MEDICARE, SELFPAY ==
--- NOTE | 2022-03-03 08:48 | XR_ITS ---
WS: [id number] XR chest 2V* [id number] REASON FOR EXAM: CHRONIC COUGH FINDINGS: Moderate tortuosity of the thoracic aorta. Normal heart size. Calcified granulomatous disease in both hemithoraces. No active pulmonary parenchymal or pleural disease. Mild changes of degenerative spondylosis in the mid thoracic spine. XR/XR chest 2V* [id number] IMPRESSION: No acute chest abnormality.
--- NOTE | 2022-03-03 08:48 | XR_ITS ---
WS: [id number] XR foot LT min 3V* [id number] REASON FOR EXAM: LEFT FOOT PAIN FINDINGS: No acute fracture or focal bone lesion. Mild narrowing with subchondral sclerosis in the Lisfranc joint, intertarsal joints, and the Chopart joint. No focal bone abnormality in the left midfoot. Mild narrowing of the subtalar joint with mild to moderate subchondral sclerosis. Small calcaneal Achilles enthesophyte. Mild narrowing with minimal subchondral sclerosis in the DIP and PIP joints of the forefoot. No soft tissue abnormality. XR/XR foot LT min 3V* [id number] IMPRESSION: No acute abnormality. 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
== END 2022-03-03 08:28 | disposition home or self-care (01) ==
LOC: RAD 08:30
PROVIDERS: PCP Family Medicine; Visit Provider Family Medicine
DX: R05.3 Chronic cough; M19.072 Primary osteoarthritis, left ankle and foot
CPT/HCPCS: 71046; 73630

== ENCOUNTER 2022-03-26 08:11 | Outpatient (CLI) | payer MEDICARE, SELFPAY ==
--- NOTE | 2022-03-26 | USCV_ITS ---
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 Resting TBI of 0.97 on the right and 0.90 on the left The PVR waveforms were of suboptimal quality. No significant abnormalities noted CONCLUSIONS Normal resting ABIs and TBIs bilaterally, suggesting no significant arterial obstruction. Unremarkable PVR waveforms. Dr Diogo Buitrago MD [facility] (Electronically Signed) Final Date: 29 March 2022 08:31 S
== END 2022-03-26 08:12 | disposition home or self-care (01) ==
PROVIDERS: PCP Family Medicine; Visit Provider Family Medicine
DX: M79.671 Pain in right foot (principal); M79.672 Pain in left foot; M79.605 Pain in left leg
CPT/HCPCS: 93923

== ENCOUNTER → 2022-04-29 13:05 | Outpatient (BNVA) | payer MEDICARE, SELFPAY | PROVIDERS: PCP Family Medicine; Visit Provider Urology | DX: N30.20 Other chronic cystitis without hematuria (principal); R33.9 Retention of urine, unspecified | CPT/HCPCS: 81003; 99214 ==

== ENCOUNTER 2022-07-06 07:18 | Outpatient (CLI) | payer MEDICARE, SELFPAY ==
--- NOTE | 2022-07-06 07:28 | CT_ITS ---
WS: [id number] CT ABDOMEN AND PELVIS WITH CONTRAST HISTORY: INTRA-ABDOMINAL PELVIC Swelling, mass, LUMP, LEFT upper abdominal pain and swelling for 2 months. TECHNIQUE: Imaging performed of the abdomen and pelvis with IV contrast. Single phase imaging of the abdomen. Coronal and sagittal reformats are submitted. All CT scans at [facility] use at [address] one of these dose optimization techniques: automated exposure control; mA and/or kV adjustment per patient size (includes targeted exams where dose is matched to clinical indication); or iterative re construction. IV CONTRAST: Omnipaque 350; 100 mL IV. Oral contrast: Yes. DLP: 307.85 mGy.cm COMPARISON: 04/23/2021 Lower thorax: Lung bases are clear. Heart is normal size. No hiatal hernia. Liver/biliary system: Normal size with no intrahepatic dilatation. Normal portal vein. Gallbladder: Normal. No gallstones or wall thickening. No pericholecystic fluid. Pancreas: Normal size pancreas and pancreatic duct. No adjacent inflammation. Spleen: Normal size spleen. No mass or infarct. Adrenal glands: Normal. Right kidney: Normal. Left kidney: Normal size. Posterior mid renal cyst measures 2.8 x 2.2 cm. Very slightly increased in size since 04/23/2021. No solid mass or obstruction. Aorta: Mild atherosclerosis with no aneurysm. Lymphadenopathy: None. Free fluid: None. GI tract: Negative stomach. No small bowel obstruction. Moderate diffuse fecal retention and constipa tion. No GI tract obstruction. Normal appendix. Abdominal wall: LEFT paraumbilical hernia containing fat only. Pelvis: No free fluid or adenopathy within the pelvis. Prior hysterectomy. Bones: Unremarkable. CT/CT abdomen pelvis w con* [id number] IMPRESSION: 1. No abdominal wall mass identified. 2. Small LEFT paraumbilical hernia containing fat only. This may potentially b e in the palpable abnormality is noted is the history. 3. LEFT renal cyst.
[2022-07-06] MEDS: iohexol 350 mg/mL 500 mL Btl (per mL) PO (08:40)
[2022-07-06] MEDS: iohexol 350 mg/mL 500 mL Btl (per mL) IV (09:13)
== END 2022-07-06 07:19 | disposition home or self-care (01) ==
LOC: RAD 07:22
PROVIDERS: PCP Family Medicine; Visit Provider Family Medicine
DX: R19.00 Intra-abdominal and pelvic swelling, mass and lump, unspecified site (principal); R07.9 Chest pain, unspecified; K42.9 Umbilical hernia without obstruction or gangrene
CPT/HCPCS: 74177; Q9967

== ENCOUNTER 2022-08-10 05:35 | Emergency (ER) | payer MEDICARE, SELFPAY ==
--- NOTE | 2022-08-10 05:38 | ECG_ITS ---
[facility] Test Date: 2022-08-10 Pat Name: Lashanda Joy Department: Room: Gender: Female Chief Mate: : 1955 Requested By: Yordan Cummings Order Number: [id number] Magan MD: Mariela Berry M.D. Measurements Intervals [place] Rate: 69 P: 22 CA: 153 QRS: 38 QRSD: 89 T: 52 QT: 382 QTc: 410 Interpretive Statements SINUS RHYTHM POSSIBLE LEFT ATRIAL ENLARGEMENT [-0.1mV P-WAVE IN V1/V2] No previous ECG available for comparison Electronically Signed On 08-10-2022 16:24:48 CDT by Mariela Berry M.D. [id number] f
--- NOTE | 2022-08-10 05:38 | XRR_ITS ---
PROCEDURE INFORMATION: Exam: XR Chest Exam date and time: 08/10/2022 5:43 AM Age: 67 years old Clinical indication: Cough and shortness of breath; Prior surgery; Surgery date: 6+ months; Surgery type: Cervical fusion; Patient HX: Cough with SOB; Additional info: Dyspnea/cough TECHNIQUE: Imaging protocol: Radiologic exam of the chest. Views: 1 view. COMPARISON: CR XR chest 2V* [id number] 03/03/2022 8:50 AM FINDINGS: Lungs: Lung volumes are somewhat decreased which may be due to body habitus. No infiltrates. Pleural spaces: Unremarkable. No pleural effusion. No pneumothorax. Heart/Mediastinum: Unremarkable. No cardiomegaly. Bones/joints: Unremarkable. XR/XR chest 1V portable [id number] IMPRESSION: Decreased lung volumes otherwise negative chest.
[2022-08-10 05:41] VITALS: BMI 24.0
[2022-08-10 05:43] VITALS: BP 153/88; PULSE 87; RESP 16; TEMP 36.8; O2SAT 95
[2022-08-10] MEDS: sodium chloride 0.9% 1,000 ML 999 ML IV (05:48)
[2022-08-10] MEDS: ondansetron 2 mg/ML SDV 2 mL 4 MG IVP (05:49)
[2022-08-10 05:54] LABS: Basophils # 0.1 10^3/uL (0.0-0.1); Basophils % 0.6 %; Eosinophils # 0.1 10^3/uL (0.0-0.8); Eosinophils % 0.6 %; Hematocrit 47.1 % (37.0-47.0); Hemoglobin 15.9 g/dL (11.5-15.3); Lymphocytes # 2.5 10^3/uL (0.8-4.8); Lymphocytes % 19.6 %; Mean Corpuscular HGB Conc 33.8 g/dL (30.0-36.0); Mean Corpuscular Hemoglobin 31.2 pg (28.0-34.0); Mean Corpuscular Volume 92.4 fl (81-99); Mean Platelet Volume 9.7 fL (7.4-10.4); Monocytes # 0.8 10^3/uL (0.2-0.9); Monocytes % 6.4 %; Neutrophils # 9.11 10^3/uL (1.8-7.7); Neutrophils % 72.5 %; Nucleated Red Blood Cells % 0 %; Platelet Count 321 10^3/cmm (130-400); Red Cell Distribution Width 12.3 % (12.1-15.1); White Blood Count 12.6 10^3/uL (4.0-10.0)
--- NOTE | 2022-08-10 05:54 | ED_ITS ---
HPI - Abdominal Pain General: Chief Complaint: Abdominal Pain Stated Complaint: Abd pain, vomiting Time Seen by Provider: 08/10/22 05:38 Source: patient Mode of arrival: ambulatory History of Present Illness: 67-year-old female presents to the emergency room with complaints of left lower quadrant abdominal pain that progressively worsened overnight. Denies fever. She has vomited twice both following x2. She denies any medic easy melena hematemesis coffee-ground emesis. She has not had a bowel movement since yesterday. She is did not has intermittently had some dysuria but no hematuria. In the past she had a suprapubic abdominal wall incision repaired by Dr. Cardoso she has also had a hysterectomy. She recently did a CT that showed a small fat- containing periumbilical hernia. She is had previous colonoscopy that showed diverticulosis. MD elicited complaint: abdominal pain Onset (ago): hour(s) Pain Consistency: constant Location: LLQ Severity: moderate Quality: sharp Radiation: none Exacerbating factors: nothing Relieving factors: nothing Associated Symptoms: Reports bloating, GI cramping and vomiting; Denies anorexia, belching, change in bowel habits, change in stool character, chills, coffee ground emesis, constipation, diarrhea, dyspepsia, dysuria, excessive flatus, fever(s), heartburn, hematochezia, hematuria, hematemesis, fecal incontinence, loose stools, melena, nausea, poor appetite and syncope Review of Systems Const: Denies: fever(s) or chills ENMT: Denies: throat pain, ear or mastoid pain, nasal discharge or nasal congestion Card: Denies: chest pain, palpitations, edema, swelling of feet/ankles or syncope Resp: Denies: dyspnea, productive cough or non-productive cough GI: Reports: abdominal pain, vomiting, bloating and GI cramping; Denies: nausea, hematemesis, coffee ground emesis, heartburn, diarrhea, const ipation, belching, excessive flatus, fecal incontinence, change in bowel habits, change in stool character, hematochezia or melena : Denies: dysuria or hematuria Skin/Breast: Denies: rash or pruritus PFSH ED PFSH: Medical History Anti-cyclic citrullinated peptide antibody positive COPD (chronic obstructive pulmonary disease) Gastroesophageal reflux disease High risk medication use Immunization counseling Lung nodule Other retirement (current) drug therapy PA (psoriatic arthritis) Post-menopausal osteoporosis Post-menopausal osteoporosis Psoriasis Pulmonary nodule, left Right lower quadrant abdominal pain Surgical History H/O hernia repair History of ankle surgery History of cervical spinal surgery History of colonoscopy History of esophagogastroduodenoscopy History of hysterectomy History of lumbar surgery Family History Mother , Age 65 Cancer Pancreatic Father , age 80 Cancer Colon Social History Smoking and tobacco status: current some day smoker Alcohol intake: never Substance/Drug Use: never Lives independently: Yes Household members: spouse Marital status: Current occupational status: disabled Do you think of yourself as: Straight/Heterosexual Current gender identity: Female Physical Exam Const: GENERAL APPEARANCE: cooperative and comfortable ORIENTATION/CONSCIOUSNESS: Yes awake, Yes oriented to person, Yes oriented to place and Yes oriented to time HENMT: COMMON NORMALS: normocephalic, atraumatic and hearing grossly normal bilaterally HEAD & SCALP: normocephalic and atraumatic Resp: COMMON NORMALS: normal respiratory effort, No retractions, No use of accessory muscles and clear to auscultation bilaterally AUSCULTATION: clear to auscultation bilaterally Cardio: COMMON NORMALS: regular rate, regular rhythm and No murmurs present (Cardio) RATE: regular rate RHYTHM: regular rhythm GI: COMMON NORMALS: No hepatosplenomegaly present AUSCULTATION: Yes normoactive bowel sounds PALPATION: Yes Tenderness to palpation present (GI) Details: LLQ, No Guarding due to palpation present (GI) and Yes No hepatosplenomegaly present Extremity: COMMON NORMALS: normal to inspection, capillary refill normal, no clubbing, cyanosis or edema, no calf tenderness and no pedal edema Neuro: SENSORIUM/ORIENTATION: Yes oriented to person, Yes oriented to place and Yes oriented to time Skin: COMMON NORMALS: no rashes or lesions noted GENERAL SKIN EXAM: no rashes or lesions noted Course Vital Signs: Vital signs: Vital Signs Temperature 98.2 F 08/10/22 05:43 Pulse Rate 67 08/10/22 06:48 Respiratory Rate 16 08/10/22 06:48 Blood Pressure 135/51 08/10/22 06:48 Pulse Oximetry 98 08/10/22 06:48 Oxygen Delivery Me thod Room Air 08/10/22 05:43 MDM - Abdominal Pain Medical Decision Making Based on exam and history patient appears to have diverticulitis. UA does show some abnormalities however she has chronic cystitis and is on methenamine. We will start her on Cipro and Flagyl clear liquid diet Zofran as needed recheck if not improving or worsens. Discussed findings with the patient and her family at the bedside. Medical Records I reviewed the patient's medical records. Lab Data I reviewed the patient's lab results. 08/10/22 05:47 08/10/22 05:47 Labs/Radiology: Laboratory Results WBC 12.6 10^3/uL (4.0-10.0) H 08/10/22 05:47 RBC 5.10 10^6/uL (4.1-5.3) 08/10/22 05:47 Hgb 15.9 g/dL (11.5-15.3) H 08/10/22 05:47 Hct 47.1 % (37.0-47.0) H 08/10/22 05:47 MCV 92.4 fl (81-99) 08/10/22 05:47 MCH 31.2 pg (28.0-34.0) 08/10/22 05:47 MCHC 33.8 g/dL (30.0-36.0) 08/10/22 05:47 RDW 12.3 % (12.1-15.1) 08/10/22 05:47 Plt Count 321 10^3/cmm (130-400) 08/10/22 05:47 MPV 9.7 fL (7.4-10.4) 08/10/22 05:47 Neut % (Auto) 72.5 % 08/10/22 05:47 Lymph % (Auto) 19.6 % 08/10/22 05:47 Porter % (Auto) 6.4 % 08/10/22 05:47 Eos % (Auto) 0.6 % 08/10/22 05:47 Baso % (Auto) 0.6 % 08/10/22 05:47 Neut # (Auto) 9.11 10^3/uL (1.8-7.7) H 08/10/22 05:47 Lymph # (Auto) 2.5 10^3/uL (0.8-4.8) 08/10/22 05:47 Porter # (Auto) 0.8 10^3/uL (0.2-0.9) 08/10/22 05:47 Eos # (Auto) 0.1 10^3/uL (0.0-0.8) 08/10/22 05:47 Baso # (Auto) 0.1 10^3/uL (0.0-0.1) 08/10/22 05:47 Nucleated RBC % (auto) 0 % 08/10/22 05:47 Nucleated RBCs # 0.0 /100WBC 08/10/22 05:47 Sodium 144 mmol/L (136-145) 08/10/22 05:47 Potassium 4.2 mmol/L (3.5-5.1) 08/10/22 05:47 Chloride 105 mmol/L (98-107) 08/10/22 05:47 Carbon Dioxide 22 mmol/L (22-29) 08/10/22 05:47 Anion Gap 21.2 (5-19) H 08/10/22 05:47 BUN 9 mg/dL (8-23) 08/10/22 05:47 Creatinine 0.6 mg/dL (0.5-0.9) 08/10/22 05:47 GFR Calculation 100.3 mL/min (90-130) 08/10/22 05:47 Glucose 126 mg/dL (65-115) H 08/10/22 05:47 Calculated Osmolality 298 mOsm/kg (285-295) H 08/10/22 05:47 Calcium 10.2 mg/dL (8.5-10.5) 08/10/22 05:47 Total Bilirubin 0.6 mg/dL (0.15-1.2) 08/10/22 05:47 AST 14 U/L (0-32) 08/10/22 05:47 ALT 11 U/L (0-33) 08/10/22 05:47 Alkaline Phosphatase 118 U/L (35-105) H 08/10/22 05:47 Total Protein 7.4 g/dL (6.6-8.7) 08/10/22 05:47 Albumin 4.7 g/dL (3.5-5.2) 08/10/22 05:47 Globulin 2.7 g/dL (1.3-4.6) 08/10/22 05:47 Lipase 18 U/L (13-60) 08/10/22 05:47 Urine Color Yellow (Yellow) 08/10/22 05:59 Urine Appearance Hazy (CLEAR) A 08/10/22 05:59 Urine pH 7 (5-7) 08/10/22 05:59 Ur Specific [place] 1.015 (1.005-1.030) 08/10/22 05:59 Urine Protein Neg (Negative) 08/10/22 05:59 Urine Glucose (UA) Norm (Normal) 08/10/22 05:59 Urine Ketones 1+ (Negative) H 08/10/22 05:59 Urine Blood 2+ (Negative) H 08/10/22 05:59 Urine Nitrate Negative (Negative) 08/10/22 05:59 Urine Bilirubin Neg (Negative) 08/10/22 05:59 Urine Urobilinogen Norm mg/dL (Negative) 08/10/22 05:59 Ur Leukocyte Esterase 1+ (Negative) H 08/10/22 05:59 Urine RBC 0-4 /hpf (0-2) H 08/10/22 05:59 Urine WBC 0-4 /hpf (0-5) H 08/10/22 05:59 Ur Squamous Epith Cells 5-10 /hpf (0-5) H 08/10/22 05:59 Ur Renal Epithelial Cell 0-4 /hpf 08/10/22 05:59 Amorphous Sediment 1+ /hpf 08/10/22 05:59 Urine Bacteria Trace /hpf (NONE) 08/10/22 05:59 Urine Mucus Trace /hpf 08/10/22 05:59 Discharge Plan Discharge Patient Disposition: Home Clinical Impression: Diverticulitis Condition: Stable Prescriptions: New Cipro 500 mg tablet 500 mg PO BID Qty: 20 0RF metronidazole 500 mg tablet 500 mg PO BID 10 Days Qty: 20 0RF ondansetron HCl 4 mg tablet 4 mg PO Q6H PRN (Reason: nausea and vomiting) Qty: 20 0RF Discontinued amoxicillin-pot clavulanate 875-125 mg tablet 1 tab PO BID Qty: 60 6RF No Action acyclovir 5 % ointment 1 applic TOPICAL 6XD methocarbamol 750 mg tablet 750 mg PO TID PRN (Reason: Muscle Spasm) valacyclovir [Valtrex] 1 gram tablet 2,000 mg PO QDAY PRN (Reason: Cold Sores) loratadine 10 mg capsule 10 mg PO QDAY levalbuterol tartrate [Xopenex HFA] 45 mcg/actuation HFA aerosol inhaler 2 inh INHALATION Q4H PRN (Reason: Respiratory Distress) levalbuterol HCl 0.63 mg/3 mL solution for nebulization 0.63 mg INHALATION TID PRN (Reason: shortness of breath or wheezing) ipratropium bromide 0.02 % solution 2.5 ml INHALATION QID PRN (Reason: Respiratory Distress) fluticasone propionate [Flonase Allergy Relief] 50 mcg/actuation spray,suspension 1 spray INTRANASAL Q12H 90 Days Qty: 19.8 3RF Rx Instructions: administer into each nostril Enbrel SureClick 50 mg/mL (1 mL) pen injector 50 mg SUBCUT .Q7days Qty: 4 3RF oxycodone-acetaminophen 5-325 mg tablet 1 tab PO Q8H PRN (Reason: Pain) ondansetron 4 mg tablet,disintegrating 4 mg PO Q8H PRN (Reason: nausea and vomiting) Qty: 30 1RF methenamine hippurate 1 gram tablet 1 g PO BID Qty: 60 12RF Rx Instructions: 1 pill twice a day with 1 g vitamin C each dose Start after completing Augmentin pantoprazole 40 mg tablet,delayed release (DR/EC) See Rx Instructions .ROUTE .COMPLEX Qty: 90 0RF Dose Instruction: TAKE 1 TABLET BY MOUTH DAILY Rx Instructions: TAKE 1 TABLET BY MOUTH DAILY prednisone 5 mg tablet 5 mg PO DAILY Qty: 90 1RF halobetasol propionate 0.05 % cream See Rx Instructions .ROUTE .COMPLEX Qty: 50 0RF Dose Instruction: APPLY TOPICALLY TO THE AFFECTED AREA TWICE DAILY. AVOID FACE Rx Instructions: APPLY TOPICALLY TO THE AFFECTED AREA TWICE DAILY. AVOID FACE tramadol 50 mg tablet 50 mg PO Q6H PRN (Reason: pain) Qty: 20 0RF Discharge Orders: Discharge ED (Routine); Ordered 08/10/22 Ordered By: Yordan Clark Referrals: Caren Willams MD [Primary Care Provider] - Discharge Diet: Clear Liquid Discharge Activity: Increase activity as tolerated Patient Instructions: Diverticulitis (ED), Opioid Safety, Pain Management Coding Level of Care Code ED Prisoner Classification Interviewer for Viridiana Grider
[2022-08-10 06:13] LABS: Alanine Aminotransferase 11 U/L (0-33); Albumin Level 4.7 g/dL (3.5-5.2); Alkaline Phosphatase 118 U/L (35-105); Anion Gap 21.2 (5-19); Aspartate Amino Transferase 14 U/L (0-32); Blood Urea Nitrogen 9 mg/dL (8-23); Calcium 10.2 mg/dL (8.5-10.5); Carbon Dioxide 22 mmol/L (22-29); Chloride 105 mmol/L (98-107); Creatinine Clr Calc Pharmacy 64.4375; Globulin 2.7 g/dL (1.3-4.6); Glomerular Filtration Rate 100.3 mL/min (90-130); Glucose 126 mg/dL (65-115); Lipase 18 U/L (13-60); Osmolality Calculated 298 mOsm/kg (285-295); Potassium 4.2 mmol/L (3.5-5.1); Sodium 144 mmol/L (136-145); Total Bilirubin 0.6 mg/dL (0.15-1.2); Total Protein 7.4 g/dL (6.6-8.7)
[2022-08-10 06:34] LABS: Bilirubin Urine Neg (Negative); Blood Urine 2+ (Negative); Glucose Urine UA Norm (Normal); Ketones Urine 1+ (Negative); Nitrate Urine Negative (Negative); Protein Urine Neg (Negative); Specific Gravity, Urine 1.015 (1.005-1.030); Urine Appearance Hazy (CLEAR); Urine Color Yellow (Yellow); Urobilinogen Urine Norm (Negative); pH Urine 7 (5-7)
[2022-08-10 06:35] LABS: Add Urine Microscopic? YES; Leukocyte Esterase Urine 1+ (Negative)
[2022-08-10 06:40] LABS: Add Urine Culture? No; Amorphous Sediment Urine 1+ /hpf; Bacteria Urine TRACE /hpf; Mucus Urine TRACE /hpf; RBC Urine 0-4 /hpf (0-2); Renal Epithelial Cells Urine 0-4 /hpf; WBC Urine 0-4 /hpf (0-5)
[2022-08-10 06:48] VITALS: BP 135/51; PULSE 67; RESP 16; O2SAT 98
== END 2022-08-10 06:50 | disposition home or self-care (01) ==
PROVIDERS: Emergency Provider Family Medicine; PCP Family Medicine
DX: K57.92 Diverticulitis of intestine, part unspecified, without perforation or abscess without bleeding (principal); F17.210 Nicotine dependence, cigarettes, uncomplicated; J44.9 Chronic obstructive pulmonary disease, unspecified
CPT/HCPCS: 71045; 80053; 81001; 83690; 85025; 93005; 96361; 96374; 99285; J2405; J7030

== ENCOUNTER 2022-10-01 10:21 | Outpatient (CLI) | payer MEDICARE, SELFPAY ==
--- NOTE | 2022-10-01 10:37 | XR_ITS ---
WS: [id number] XR ankle RT min 3V* [id number] REASON FOR EXAM: PAIN IN R ANKLE JOINTS OF R FOOT FINDINGS: Moderate bone demineralization. No fracture or focal bone lesion. No periosteal reaction. Moderate narrowing of the anterior tibiotalar joint with subchondral sclerosis and articular marginal osteophytosis. Mild narrowing of the lateral and medial clear spaces with moderate subchondral sclerosis. 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
== END 2022-10-01 10:22 | disposition home or self-care (01) ==
PROVIDERS: PCP Family Medicine; Visit Provider Family Medicine
DX: M19.071 Primary osteoarthritis, right ankle and foot (principal)
CPT/HCPCS: 73610

== ENCOUNTER → 2022-10-18 13:03 | Outpatient (BNVA) | payer MEDICARE, SELFPAY | PROVIDERS: PCP Family Medicine; Visit Provider Podiatrist Foot & Ankle Surgery | DX: M79.672 Pain in left foot (principal); M19.171 Post-traumatic osteoarthritis, right ankle and foot; M25.571 Pain in right ankle and joints of right foot; G89.29 Other chronic pain; Z87.81 Personal history of (healed) traumatic fracture | CPT/HCPCS: 73630; 99203 ==

== ENCOUNTER 2023-11-24 09:00 | Outpatient (CLI) | payer MEDICARE, SELFPAY ==
--- NOTE | 2023-11-24 09:10 | MM_ITS ---
WS: [id number] SCREENING DIGITAL BREAST TOMOSYNTHESIS MAMMOGRAM WITH CAD HISTORY: SCREENING COMPARISON: 11/28/2018, 06/14/2017, 03/26/2015 Bilateral CC and MLO with tomosynthesis and synthetic mammography submitted. Computer aided detection analyzed. Breast composition: The breasts are heterogeneously dense, which may obscure small masses. Increasing asymmetry and density in the LEFT MLO image in the central breast. This would correspond to the late ral aspect of the LEFT breast. The asymmetry and increasing density is most prominent on the lateral projection. Dense fibroglandular tissue and scattered calcifications in the RIGHT breast. MM/MM scr BI tomosynthesis [id number] IMPRESSION: BI-RADS: 0 - Incomplete: Need additional imaging evaluation FOLLOW UP: Need Additional Imaging LEFT breast: Spot compression views (CC and MLO). True ML. Ultrasound to follow if abnormality persists.
== END 2023-11-24 09:01 | disposition home or self-care (01) ==
LOC: RAD 09:01
PROVIDERS: PCP Family Medicine; Visit Provider Family Medicine
DX: Z12.31 Encounter for screening mammogram for malignant neoplasm of breast (principal); R92.333 Mammographic heterogeneous density, bilateral breasts; N64.89 Other specified disorders of breast; R92.1 Mammographic calcification found on diagnostic imaging of breast
CPT/HCPCS: 77063; 77067

== ENCOUNTER 2023-12-20 10:31 | Outpatient (CLI) | payer MEDICARE, SELFPAY ==
--- NOTE | 2023-12-20 10:37 | MM_ITS ---
WS: [id number] ADDITIONAL VIEWS LEFT MAMMOGRAM with tomosynthesis. LEFT BREAST ULTRASOUND HISTORY: ABNORMAL MAMMOGRAM COMPARISON: 11/24/2023, 11/28/2018 LEFT MAMMOGRAM: Spot compression views and true ML with tomosynthesis and sympathetic mammography. The asymmetry noted in the superior lateral LEFT breast nearly completely resolves with additional sp ot compression views. The asymmetry persists on the MLO projection. Ultrasound will be performed. LEFT BREAST ULTRASOUND 2-D and color Doppler imaging submitted. Ultrasound is directed to the LEFT breast from 1-4 o'clock in the area of the abnormality. There is n o mass identified. No shadowing or suspicious finding. MM/MM diag LT tomosynthesis [id number] IMPRESSION: BI-RADS: 2- Benign FOLLOW UP: 1 Year Follow-up
== END 2023-12-20 10:32 | disposition home or self-care (01) ==
PROVIDERS: PCP Family Medicine; Visit Provider Family Medicine
DX: R92.8 Other abnormal and inconclusive findings on diagnostic imaging of breast (principal)
CPT/HCPCS: 76642; 77061; G0279

== ENCOUNTER → 2024-03-21 10:04 | Outpatient (BNVA) | payer MEDICARE, SELFPAY | PROVIDERS: PCP Family Medicine; Visit Provider Internal Medicine Rheumatology | DX: L40.50 Arthropathic psoriasis, unspecified (principal); L40.9 Psoriasis, unspecified; Z79.899 Other long term (current) drug therapy; Z71.89 Other specified counseling; R10.31 Right lower quadrant pain | CPT/HCPCS: 36415; 80076; 82565; 85025; 85651; 86140; 86480; 86704; 86803; 87340; 99214 ==

== ENCOUNTER 2024-05-15 07:42 | Outpatient (CLI) | payer MEDICARE, SELFPAY ==
[2024-05-15 08:20] VITALS: PULSE 82; RESP 18; O2SAT 97
[2024-05-15] MEDS: albuterol 2.5 mg/3 mL Neb INHALATION (08:21)
--- NOTE | 2024-05-15 08:58 | CT_ITS ---
WS: [email or web address] LDCT LUNG CANCER SCREENING TECHNIQUE: Noncontrast CT of the chest with coronal and sagittal reformatted images. CLINICAL INFORMATION: HX OF TOBACCO USE COMPARISON: CT 2019 DLP: 53.66 mGy.cm DIvol: Mean CTDIvol: 1.00 (mGy) All CT scans at use at least one of these dose optimization techniques: automated exposure control; mA and/or kV adjustment per patient size (includes targeted exams where dose is matched to clinical indication); or iterative reconstruction. FINDINGS: 7 mm noncalcified nodule in the LEFT upper lobe is increased slightly since 2020 where it measured approximately 6 mm but otherwise unchanged. Recommend 12-month follow-up. Aortic calcification. Coronary calcification. No mediastinal or hilar lymphadenopathy. No axillary lymphadenopathy. Adrenal glands are normal. Normal GE junction. Splenic artery calcification. Mild chronic anterior wedging in the upper thoracic spine. CT/CT lung screening [id number] IMPRESSION: LUNG-RADS: 2-Benign Appearance or Behavior FOLLOW UP: 12 Month: Continue annual screening with LDCT
== END 2024-05-15 07:43 | disposition home or self-care (01) ==
PROVIDERS: PCP Family Medicine; Visit Provider Family Medicine
DX: Z12.2 Encounter for screening for malignant neoplasm of respiratory organs (principal); Z87.891 Personal history of nicotine dependence; Z87.09 Personal history of other diseases of the respiratory system; R91.1 Solitary pulmonary nodule; I70.0 Atherosclerosis of aorta; I25.10 Atherosclerotic heart disease of native coronary artery without angina pectoris; I70.8 Atherosclerosis of other arteries; M48.54XD Collapsed vertebra, not elsewhere classified, thoracic region, subsequent encounter for fracture with routine healing
CPT/HCPCS: 71271; 94060; 94726; 94729; J7613

== ENCOUNTER → 2024-07-11 10:17 | Outpatient (BNVA) | payer MEDICARE, SELFPAY | PROVIDERS: PCP Family Medicine; Visit Provider Internal Medicine Rheumatology | DX: L40.50 Arthropathic psoriasis, unspecified (principal); L40.9 Psoriasis, unspecified; Z79.899 Other long term (current) drug therapy; Z71.89 Other specified counseling; R10.31 Right lower quadrant pain | CPT/HCPCS: 36415; 80076; 82565; 85025; 85651; 86140; 99214 ==

== ENCOUNTER 2024-08-15 11:48 | Outpatient (CLI) | payer MEDICARE, SELFPAY ==
[2024-08-15 12:30] LABS: Basophils # 0.1 10^3/uL (0.0-0.1); Basophils % 0.7 %; Eosinophils # 0.2 10^3/uL (0.0-0.8); Eosinophils % 1.8 %; Hematocrit 43.1 % (36-47); Lymphocytes # 3.5 10^3/uL (0.8-4.8); Lymphocytes % 38.8 %; Mean Corpuscular HGB Conc 33.2 g/dL (30-55); Mean Corpuscular Hemoglobin 31.5 pg (27-33); Mean Corpuscular Volume 94.9 fl (85-98); Mean Platelet Volume 9.7 fL (7.4-10.4); Monocytes # 0.5 10^3/uL (0.2-0.9); Monocytes % 5.9 %; Neutrophils % 52.6 %; Nucleated Red Blood Cells % 0 %; Platelet Count 264 10^3/cmm (157-399); Red Blood Count 4.54 10^6/uL (3.85-5.65); Red Cell Distribution Width 12.7 % (12.1-15.1); White Blood Count 9.12 10^3/uL (3.29-11.43)
[2024-08-15 12:37] LABS: Erythrocyte Sedimentation Rate 10 mm/hr (0-15)
[2024-08-15 12:46] LABS: Alanine Aminotransferase 11 U/L (0-33); Albumin Level 4.4 g/dL (3.5-5.2); Alkaline Phosphatase 109 U/L (35-105); Aspartate Amino Transferase 14 U/L (0-32); Bilirubin Direct 0.15 mg/dL (0.00-0.30); C Reactive Protein 3.1 mg/L (0.0-4.9); Globulin 2.7 g/dL (1.3-4.6); Glomerular Filtration Rate 123.1 mL/min (90-130); Total Bilirubin 0.5 mg/dL (0.15-1.2); Total Protein 7.1 g/dL (6.6-8.7)
== END 2024-08-15 11:49 | disposition home or self-care (01) ==
PROVIDERS: PCP Family Medicine; Visit Provider Internal Medicine Rheumatology
DX: Z79.899 Other long term (current) drug therapy (principal)
CPT/HCPCS: 36415; 80076; 82565; 85025; 85651; 86140

== ENCOUNTER 2024-08-15 13:00 | Outpatient (CLI) | payer MEDICARE, SELFPAY ==
--- NOTE | 2024-08-15 13:00 | XR_ITS ---
WS: [id number] DEXA (DUAL ENERGY X-RAY ABSORPTIOMETRY) Bone mineral density was performed using a [employer] machine. HISTORY: M81.0 - Age-related osteoporosis without current patholog... COMPARISON: 07/25/2019 Lumbar spine BMD (L1-L4): 0.890 g/cm2 T score: -2.4 Z score: -0.8 Total hip BMD: Left: 0.518 g/cm2. T score: -3.9 Z score: -2.6 Right: 0.460 g/cm2. T score: -4.3 Z score: -3.1 10 year probability of a major osteoporotic fracture is 33.6%. Compared to the prior study from 07/25/2019. Lumbar spine bone mineral density has decreased by 2.7%. Bilateral hips bone mineral density has decreased by 10.9%. XR/XR DEXA axial skeleton* [id number] IMPRESSION: OSTEOPOROSIS based upon the WHO classification for females. Significant decrease in bone mineral density within the lumbar spine and hips s edilberto the prior study.
== END 2024-08-15 13:01 | disposition home or self-care (01) ==
LOC: RAD 08-17 07:16
PROVIDERS: PCP Family Medicine; Visit Provider Internal Medicine Rheumatology
DX: M81.0 Age-related osteoporosis without current pathological fracture (principal)
CPT/HCPCS: 77080

== ENCOUNTER → 2024-11-22 13:18 | Outpatient (BNVA) | payer MEDICARE, SELFPAY | PROVIDERS: PCP Family Medicine; Visit Provider Internal Medicine Rheumatology | DX: L40.50 Arthropathic psoriasis, unspecified (principal); L40.9 Psoriasis, unspecified; Z79.899 Other long term (current) drug therapy; Z71.85 Encounter for immunization safety counseling; R10.31 Right lower quadrant pain; M81.0 Age-related osteoporosis without current pathological fracture; M51.369 Other intervertebral disc degeneration, lumbar region without mention of lumbar back pain or lower extremity pain; J44.9 Chronic obstructive pulmonary disease, unspecified; R91.8 Other nonspecific abnormal finding of lung field | CPT/HCPCS: 36415; 80076; 82306; 82565; 85007; 85025; 85651; 86140; 99214 ==

== ENCOUNTER 2024-12-20 09:37 | Outpatient (CLI) | payer MEDICARE, SELFPAY ==
--- NOTE | 2024-12-20 09:44 | CT_ITS ---
WS: [id number] CT ABDOMEN AND PELVIS WITH CONTRAST HISTORY: NAUSEA/INTRA ABDOMINAL PELVIC SWELLING,MASS LUMP TECHNIQUE: Imaging performed of the abdomen and pelvis with IV contrast. Single phase imaging of the abdomen. Coronal and sagittal reformats are submitted. All CT scans at [facility] use at least one of these dose optimization techniques: automated exposure control; mA and/or kV adjustment per patient size (includes targeted exams where dose is matched to clinical indication); or iterative reconstruction. IV CONTRAST: Omnipaque 350; 100 mL IV. Oral contrast: No DLP: 278.94 mGy.cm COMPARISON: 07/06/2022 Lower thorax: Lung bases are clear. Heart is normal size. No hiatal hernia. Liver/biliary system: Normal size with no intrahepatic dilatation. Gallbladder: Normal. No gallstones or wall thickening. No pericholecystic fluid. Pancreas: Normal size pancreas and pancreatic duct. No adjacent inflammation. Spleen: Normal size spleen. No mass or infarct. Adrenal glands: Normal. Right kidney: Normal. Left kidney: Normal size kidney. Posterior renal cyst 3.1 x 2.8 cm. No renal obstruction. Aorta: Mild atherosclerosis with no aneurysm. More advanced atherosclerotic changes within the iliac arteries. Lymphadenopathy: None. Free fluid: None. GI tract: No GI tract obstruction. There is no colitis. Normal appendix. No significant diverticular disease. There are a few sigmoid diverticula without acute diverticulitis. Abdominal wall: LEFT paraumbilical abdominal wall hernia contains fat only. Orifice of the hernia is 9 mm. No additional hernias. Pelvis: No free fluid or adenopathy within the pelvis. Uterus not identified. No masses. Bones: Degenerative changes in the lumbar spine. RIGHT foraminal broad-based disc protrusion at L4-5. CT/CT abdomen pelvis w con* [id number] IMPRESSION: 1. No acute abdominal or pelvic abnormalities. 2. LEFT paraumbilical fat-containing hernia, orifice 9 mm. 3. No renal obstruction. 4. Simple LEFT renal cyst, 3.1 cm. 5. Very minimal sigmoid diverticulosis without acute diverticulitis. 6. No ascites or adenopathy.
[2024-12-20] MEDS: iohexol 350 mg/mL 500 mL Btl (per mL) IV (10:16)
== END 2024-12-20 09:38 | disposition home or self-care (01) ==
LOC: RAD 09:40
PROVIDERS: PCP Nurse Practitioner Family; Visit Provider Nurse Practitioner Family
DX: R11.0 Nausea (principal); R19.00 Intra-abdominal and pelvic swelling, mass and lump, unspecified site; K42.9 Umbilical hernia without obstruction or gangrene; N28.1 Cyst of kidney, acquired; K43.9 Ventral hernia without obstruction or gangrene; I70.90 Unspecified atherosclerosis; R93.7 Abnormal findings on diagnostic imaging of other parts of musculoskeletal system
CPT/HCPCS: 74177